=== PATIENT | male | born 1975 | race Asian ===

== ENCOUNTER 2018-08-14 08:09 | Inpatient (IN) | payer OTHER ==
[2018-08-14 08:41] LABS: BASO % 1.1 % (0-2.0); EOS % 4.8 % (0-4.5); LYMPH % 28.1 % (8-40); MCH 31.9 pg (25.7-33.7); MCHC 32.8 g/dl (32.0-35.9); MEAN CELL VOLUME 97.3 fl (80-96); MEAN PLT VOLUME 8.7 fl (7.5-11.1); MONO % 6.1 % (3.8-10.2); NEUT % 59.9 % (42.8-82.8); PLATELET COUNT 352 K/MM3 (134-434); RBC 5.96 M/mm3 (4.00-5.60); RDW 12.2 % (11.9-15.9); WHITE BLOOD COUNT 9.8 K/mm3 (4.0-10.8)
[2018-08-14] MEDS ORDERED: FAMOTIDINE 20 MG/50 ML IVPB 20 MG/50 ML MG IVPB ONE ×2 (08:48→08:54)
[2018-08-14] MEDS ORDERED: SODIUM CHLORIDE 1,000 ML IV ONE ×2 (08:48→09:50)
[2018-08-14] MEDS ORDERED: LORazepam 2 MG/ML SDV VIAL ONE ×2 (08:54→10:47)
[2018-08-14 08:56] LABS: MAGNESIUM 1.9 mg/dL (1.8-2.4)
[2018-08-14 08:57] LABS: ALBUMIN 3.8 g/dl (3.4-5.0); ALK PHOS 95 U/L (45-117); ANION GAP 18 MMOL/L (8-16); BILIRUBIN,TOTAL 1.7 mg/dl (0.2-1); BLOOD UREA NITROGEN 8 mg/dl (7-18); CALCIUM 9.4 mg/dl (8.5-10); CHLORIDE 98 mmol/L (98-107); CO2 21 mmol/L (21-32); CREATININE 1.1 mg/dl (0.55-1.3); GLUCOSE,RANDOM 217 mg/dl (74-106); POTASSIUM 4.2 mmol/L (3.5-5.1); SGOT/AST 32 U/L (15-37); SGPT/ALT 25 U/L (13-61); SODIUM 137 mmol/L (136-145); TOT PROT 7.2 g/dl (6.4-8.2)
--- NOTE | 2018-08-14 09:00 | PDOC ---
History of Present Illness - General Chief Complaint: Pain, Acute Stated Complaint: ABDOMINAL PAIN/PALPITATIONS Time Seen by Provider: 08/14/18 08:15 History Source: Patient Exam Limitations: No Limitations - History of Present Illness Initial Comments: 08/14/18 08:55 43-year-old male with history of hypertension presents with abdominal cramping/ vomiting/diarrhea for 1 day. Patient was in his usual state of normal health, which includes moderate alcohol intake of 4-5 drinks per day for 4-5 days per week. He did have alcohol binge over the weekend celebrating his birthday, drinking "a lot" Monday, Monday, and Monday. He awoke yesterday with mild abdominal discomfort and had an episode of nonbloody vomiting. Decreased appetite without food but adequately hydrating with water, presents today for evaluation of persistent mild cramping in the epigastric and left-sided abdominal region and feeling palpitations. Compliant with his Norvasc including this morning, denies any headache/vision change/speech change/chest pain/ shortness of breath/dyspnea on exertion/edema/focal weakness. Does not feel anxious or jittery, does not report symptoms of withdrawal in the past. No history of gallstones or pancreatitis or gastritis, never needed PPI or endoscopy. Past History - Past Medical History Allergies/Adverse Reactions: Allergies Allergy/AdvReac Type Severity Reaction Status Date / Time Penicillins Allergy Verified 08/14/18 08:10 Home Medications: Ambulatory Orders Amlodipine Besylate [Norvasc -] 10 mg PO DAILY #1 tablet 05/02/17 COPD: No HTN: Yes Other medical history: ANXIETY - Suicide/Smoking/Psychosocial Hx Smoking History: Never smoked Have you smoked in the past 12 months: No Information on smoking cessation initiated: No Hx Alcohol Use: Yes (4 TIMES A WEEK) Drug/Substance Use Hx: Yes ([employer]) Substance Use Type: Alcohol Hx Substance Use Treatment: No Review of Systems - Review of Systems Constitutional: No: Chills, Fever HEENTM: No: Recent change in vision, Nose Congestion Respiratory: No: Cough, Shortness of Breath, SOB with Exertion Cardiac (ROS): Yes: Palpitations. No: Chest Pain, Edema, Syncope ABD/GI: Yes: Diarrhea, Nausea, Vomiting Neurological: No: Headache, Weakness Psychiatric: No: Anxiety, Depression All Other Systems: Reviewed and Negative *Physical Exam - Vital Signs Last Vital Signs Temp Pulse Resp BP Pulse Ox 97.3 F L 130 H 20 174/137 H 97 08/14/18 08:23 08/14/18 08:23 08/14/18 08:23 08/14/18 08:23 08/14/18 08:23 - Physical Exam Comments: 08/14/18 09:08 Blood pressure elevated, heart rate 115, O2 sat normal, afebrile GENERAL: The patient is awake, alert, and fully oriented, in no acute distress. HEAD: Normal with no signs of trauma. EYES: PERRL, EOMI, sclera anicteric, conjunctiva clear with no pallor. ENT: oropharynx clear without exudates. Dry mucous membranes. No tongue fasciculations. NECK: Normal range of motion, supple. LUNGS: Breath sounds equal, clear to auscultation bilaterally. No wheeze/ crackles. HEART: regular tachycardia, normal S1 and S2 without murmur or rub. ABDOMEN: Soft/nontender/nondistended. BS wnl. No guarding or rebound. No palpable masses. No hepatosplenomegaly. No cvat. EXTREMITIES: Normal range of motion, no edema. 2+ distal pulses. No cords, erythema, or tenderness. NEUROLOGICAL: Cranial nerves II through XII grossly intact. Normal speech, normal gait. PSYCH: Normal mood, normal affect. Feels palpitations but not overly anxious. no si/hi/ah/vh. SKIN: Warm, Dry, no rashes or lesions noted. Moderate Sedation - Procedure Monitoring Vital Signs: Procedure Monitoring Vital Signs Temperature 97.3 F L 08/14/18 08:23 Pulse Rate 130 H 08/14/18 08:23 Respiratory Rate 20 08/14/18 08:23 Blood Pressure 174/137 H 08/14/18 08:23 O2 Sat by Pulse Oximetry (%) 97 08/14/18 08:23 Heart Score/ECG Review #1 General ECG Interpretation: Sinus Rhythm (tachy at 119), Normal Intervals (qtc 452), No acute ischemic changes ED Treatment Course - LABORATORY CBC & Chemistry Diagram: 08/14/18 08:20 08/14/18 08:20 - ADDITIONAL ORDERS Additional order review: 08/14/18 08:20 RBC 5.96 H MCV 97.3 H MCHC 32.8 RDW 12.2 MPV 8.7 Neutrophils % 59.9 Lymphocytes % 28.1 D Monocytes % 6.1 Eosinophils % 4.8 H Basophils % 1.1 Medical Decision Making - Critical Care Time Total Critical Care Time (minutes): 45 Critical Care Statement: The care of this patient involved high complexity decision making to prevent further life threatening deterioration of the patient 's condition and/or to evaluate & treat vital organ system(s) failure or risk of failure. - Medical Decision Making 08/14/18 09:23 43-year-old male with history of hypertension presents with abdominal cramping/ vomiting/diarrhea for 1 day in the setting of recent alcohol binge, baseline mild to moderate alcohol intake. Presentation could be consistent with alcoholic gastritis, pancreatitis, gastroenteritis. Also concerning for early withdrawal given the hypertension and tachycardia. labs, ekg ivf antacid, trial of ativan reassess 08/14/18 09:55 wbc normal, slightly hemoconcentrated. nomal ast/alt/alkphos. lipase pending. received ivf and ativan, slight improvement in heart rate (105). will give additional iv fluids and continue to monitor. 08/14/18 10:43 Lipase wnl at 193. Remains tachy after 2nd liter of NS, though otherwise asymptomatic. Will give second dose of ativan and add librium and reassess. 08/14/18 11:20 received ativan 4mg, clinically comfortable and fell asleep but persistent elevated BP (155/117) and heart rate (120). Pt otherwise asx. BP control: consider additional dose of home norvasc versus clonidine given etoh intake. Will add TSH, no risk factors or clinical suspicion for PE. Check utox for possible secondary tox syndrome but does not appear clinically sympathomimetic. will admit to tele for continued monitoring. 08/14/18 11:35 Accepted for inpatient tele by Dr. Colin, signout given to MARIS Queen. Discussed and will trial clonidine 0.1mg. She will consult addiction medicine and we will place patient on tele. *DC/Admit/Observation/Transfer Diagnosis at time of Disposition: Abdominal cramping, Palpitations Alcohol withdrawal Qualifiers: Complication of substance-induced condition: uncomplicated Qualified Code(s): F10.230 - Alcohol dependence with withdrawal, uncomplicated - Discharge Dispostion Condition at time of disposition: Stable Decision to Admit order: Yes - Referrals - Patient Instructions - Post Discharge Activity
[2018-08-14 10:36] LABS: LIPASE 193 U/L (73-393)
[2018-08-14] MEDS ORDERED: chlordiazePOXIDE HCL 25 MG CAPSULE PO ONE (10:44)
[2018-08-14] MEDS ORDERED: chlordiazePOXIDE HCL 25 MG CAPSULE ONE (10:45)
[2018-08-14] MEDS ORDERED: cloNIDine HCL 0.1 MG TABLET PO ONE (11:37)
[2018-08-14] MEDS ORDERED: cloNIDine HCL 0.1 MG TABLET ONE (11:39)
[2018-08-14 11:54] LABS: PH,URINE 5.5 (4.5-8); URINE APPEARANCE CLEAR; URINE BILIRUBIN NEGATIVE (NEGATIVE); URINE COLOR AMBER; URINE GLUCOSE (UA) NEGATIVE (NEGATIVE); URINE KETONE NEGATIVE (NEGATIVE); URINE LEUK ESTERASE NEGATIVE (NEGATIVE); URINE NITRITE NEGATIVE (NEGATIVE); URINE PROTEIN NEGATIVE (NEGATIVE); URINE UROBILINOGEN 0.2 (0.2-1.0)
[2018-08-14 12:28] LABS: ANION GAP 13 MMOL/L (8-16); BLOOD UREA NITROGEN 7 mg/dl (7-18); CALCIUM 8.5 mg/dl (8.5-10); CHLORIDE 102 mmol/L (98-107); CO2 20 mmol/L (21-32); CREATININE 0.9 mg/dl (0.55-1.3); GLUCOSE,RANDOM 122 mg/dl (74-106); SODIUM 135 mmol/L (136-145)
--- NOTE | 2018-08-14 12:34 | HP ---
CHIEF COMPLAINT: Abdominal cramping, vomiting, diarrhea PCP: None HISTORY OF PRESENT ILLNESS: 43 year-old male witha PMH significant for HTN, presents with abdominal cramping /vomiting/diarrhea for 1 day. Patient was in his usual state of normal health, which includes alcohol intake of 4-5 drinks per day, 4-5 days per week. He did have alcohol binge over the weekend celebrating his birthday, drinking "a lot" Monday, Monday, and Monday. His last drink was on Monday night, 08/12. Last meal at the same time. Patient awoke yesterday with mild abdominal discomfort and had an episode of nonbloody vomiting. Decreased appetite without food but adequately hydrating with water, presents today for evaluation of persistent mild cramping in the epigastric and left-sided abdominal region and feeling palpitations. Compliant with his Norvasc including this morning, denies any headache/vision change/speech change/chest pain/shortness of breath/dyspnea on exertion/edema/focal weakness. Admits to this provider he went through alcohol withdrawal about six months ago when he got the shakes. He was not in a hospital or rehab setting. No history of gallstones or pancreatitis or gastritis , never needed PPI or endoscopy. ER course was notable for: (1) 166/119, p 121 (2) Total bili 1.7 (3) Lactic acid 2.6 (4) Librium 50mg x 1; ativan IVP total 6mg; clonidine 0.1mg x 1; pepcid IVPB 20mg x 1; NS x 2L Recent Travel: No PAST MEDICAL HISTORY: Hypertension PAST SURGICAL HISTORY: None reported Social History: works as cardiovascular heating and cooling technician Smoking: Alcohol: see above Drugs: Family History: Allergies Penicillins Allergy (Verified 08/14/18 08:10) HOME MEDICATIONS: Home Medications Medication Instructions Recorded Amlodipine Besylate [Norvasc -] 10 mg PO DAILY #1 tablet 05/02/17 REVIEW OF SYSTEMS CONSTITUTIONAL: Absent: fever, chills, diaphoresis, generalized weakness, malaise, loss of appetite, weight change HEENT: Absent: rhinorrhea, nasal congestion, throat pain, throat swelling, difficulty swallowing, mouth swelling, ear pain, eye pain, visual changes CARDIOVASCULAR: Absent: chest pain, syncope, palpitations, irregular heart rate, lightheadedness , peripheral edema RESPIRATORY: Absent: cough, shortness of breath, dyspnea with exertion, orthopnea, wheezing, stridor, hemoptysis GASTROINTESTINAL: +abdominal cramping, nausea, vomiting, diarrhea Absent: constipation, melena, hematochezia GENITOURINARY: Absent: dysuria, frequency, urgency, hesitancy, hematuria, flank pain, genital pain MUSCULOSKELETAL: Absent: myalgia, arthralgia, joint swelling, back pain, neck pain SKIN: Absent: rash, itching, pallor HEMATOLOGIC/IMMUNOLOGIC: Absent: easy bleeding, easy bruising, lymphadenopathy, frequent infections ENDOCRINE: Absent: unexplained weight gain, unexplained weight loss, heat intolerance, cold intolerance NEUROLOGIC: Absent: headache, focal weakness or paresthesias, dizziness, unsteady gait, seizure, mental status changes, bladder or bowel incontinence PSYCHIATRIC: Absent: anxiety, depression, suicidal or homicidal ideation, hallucinations. PHYSICAL EXAMINATION Vital Signs - 24 hr 08/14/18 08/14/18 08/14/18 08:23 09:11 10:47 Temperature 97.3 F L Pulse Rate 130 H Pulse Rate [ 117 H 124 H Left Apical] Respiratory 20 18 18 Rate Blood Pressure 174/137 H Blood Pressure 166/119 H 157/120 H [Right Arm] O2 Sat by Pulse 97 99 98 Oximetry (%) GENERAL: Awake, alert, and fully oriented. Anxious appearing. No tremors, no asterixis, no diaphoresis. HEAD: Normal with no signs of trauma. EYES: Pupils equal, round and reactive to light, extraocular movements intact, injected sclera appearance EARS, NOSE, THROAT: Ears normal, nares patent, oropharynx clear without exudates. Dry mucous membranes. NECK: Normal range of motion, supple without lymphadenopathy, JVD, or masses. LUNGS: Breath sounds equal, clear to auscultation bilaterally. No wheezes, and no crackles. No accessory muscle use. HEART: Rapid, regular rate and rhythm, S1 and S2 ABDOMEN: Soft, nontender, not distended, MUSCULOSKELETAL: Normal range of motion at all joints. No bony deformities or tenderness. No CVA tenderness. UPPER EXTREMITIES: 2+ pulses, warm, well-perfused. No cyanosis. No clubbing. No peripheral edema. LOWER EXTREMITIES: 2+ pulses, warm, well-perfused. No calf tenderness. No peripheral edema. NEUROLOGICAL: Cranial nerves II-XII intact. Normal speech. Laboratory Results - last 24 hr 08/14/18 08/14/18 08/14/18 08:20 08:20 08:20 WBC 9.8 RBC 5.96 H Hgb 19.0 H Hct 58.0 H D MCV 97.3 H MCH 31.9 MCHC 32.8 RDW 12.2 Plt Count 352 D MPV 8.7 Absolute Neuts (auto) 5.8 Neutrophils % 59.9 Lymphocytes % 28.1 D Monocytes % 6.1 Eosinophils % 4.8 H Basophils % 1.1 Sodium 137 Potassium 4.2 Chloride 98 Carbon Dioxide 21 Anion Gap 18 H BUN 8 Creatinine 1.1 Creat Clearance w eGFR > 60 Random Glucose 217 H Calcium 9.4 Magnesium Total Bilirubin 1.7 H AST 32 ALT 25 Alkaline Phosphatase 95 Creatine Kinase Creatine Kinase Index CK-MB (CK-2) Troponin I < 0.03 Total Protein 7.2 Albumin 3.8 Lipase 193 Urine Color Urine Appearance Urine pH Ur Specific Reagan Urine Protein Urine Glucose (UA) Urine Ketones Urine Blood Urine Nitrite Urine Bilirubin Urine Urobilinogen Ur Leukocyte Esterase Alcohol, Quantitative 08/14/18 08/14/18 08/14/18 08:20 11:38 12:06 WBC RBC Hgb Hct MCV MCH MCHC RDW Plt Count MPV Absolute Neuts (auto) Neutrophils % Lymphocytes % Monocytes % Eosinophils % Basophils % Sodium 135 L Potassium 4.0 Chloride 102 Carbon Dioxide 20 L Anion Gap 13 BUN 7 Creatinine 0.9 Creat Clearance w eGFR > 60 Random Glucose 122 H Calcium 8.5 Magnesium 1.9 Total Bilirubin AST ALT Alkaline Phosphatase Creatine Kinase 325 H Creatine Kinase Index 0.6 CK-MB (CK-2) 2.2 Troponin I Total Protein Albumin Lipase Urine Color Annabel Urine Appearance Clear Urine pH 5.5 D Ur Specific Reagan 1.020 Urine Protein Negative Urine Glucose (UA) Negative Urine Ketones Negative Urine Blood Negative Urine Nitrite Negative Urine Bilirubin Negative Urine Urobilinogen 0.2 Ur Leukocyte Esterase Negative Alcohol, Quantitative 5.5 H ECG: sinus tach @ 119bpm ASSESSMENT/PLAN 43 year-old male with a PMH significant for HTN admitted for hypertensive urgency likely secondary to acute alcohol withdrawal. Acute alcohol withdrawal Lactic acidosis --last drink 08/12 at 10:00pm --serum alcohol 5, utox pending --lactic acid 2.6, repeat in 4 hours --first dose librium PO 50mg given in ED, start librium protocol --ativan PRN for seizure --Dr. Dumont consult placed Elevated bilirubin --total bili 1.7, has been elevated in past --05/01/17 liver: fatty infiltration --get repeat US --continue to trend LFTs Elevated hemoglobin --likely secondary to low volume state Hypertensive urgency --BP 149/118 on admission to floor after clonidine and ativan 6mg in ED --hydralazine IVP 20mg and PO 25mg now; repeat in 2 hours --may need to be transferred to [facility] for drip --TSH pending FEN Fluids: 2L NS given in ED; 3rd L running now, then 125mL/hr Electrolytes: replete as indicated Nutrition: NPO DVT prophylaxis: SCDs Dispo: continues to require inpatient care. Full code. Visit type - Emergency Visit Emergency Visit: Yes ED Registration Date: 08/14/18 Care time: The patient presented to the Emergency Department on the above date and was hospitalized for further evaluation of their emergent condition. - New Patient This patient is new to me today: Yes Date on this admission: 08/14/18 - Critical Care Critical Care patient: No
[2018-08-14 13:05] VITALS: BMI 26.3
[2018-08-14] MEDS ORDERED: hydrALAZINE HCL 20 MG/ML VIAL IVPUSH ONE (13:15)
[2018-08-14] MEDS ORDERED: chlordiazePOXIDE HCL 25 MG CAPSULE PO PRN (13:24)
[2018-08-14] MEDS ORDERED: hydrALAZINE HCL 25 MG TABLET (FP) PO ONE ×2 (13:30→13:45)
[2018-08-14 13:31] LABS: COCAINE, UR NEGATIVE ng/ml (CUTOFF=300); METHADONE, UR NEGATIVE ng/ml (CUTOFF=300); OPIATES, URI NEGATIVE ng/ml (CUTOFF=300); PHENCYCLIDINE,URINE NEGATIVE ng/ml (CUTOFF=25); URINE AMPHETAMINES NEGATIVE ng/ml (CUTOFF=500); URINE BARBITURATES NEGATIVE ng/ml (CUTOFF=200); URINE BENZODIAZEPINES NEGATIVE ng/ml (CUTOFF=200)
[2018-08-14] MEDS ORDERED: SODIUM CHLORIDE 1,000 ML IV STA (13:56)
[2018-08-14] MEDS ORDERED: LORazepam 2 MG/ML SDV VIAL IVPUSH PRN (14:04)
[2018-08-14] MEDS ORDERED: SODIUM CHLORIDE 1,000 ML IV SCH (15:00)
[2018-08-14] MEDS ORDERED: amLODIPine BESYLATE 10 MG TABLET (FP) PO ONE (15:20)
--- NOTE | 2018-08-14 15:53 | PN ---
[facility] Progress Note (SOAP) Subjective: 43 y.o. male referred for consultation for alcohol use , reports 4-5 drinks/ day x 5 years and binge-drinking over the last weekend for his birthday , reports he drank " a lot " with his friends and then started having nausea, vomiting, diarrhea and palpitation, presented to ED , currently on telemetry monitoring and IVF , on Librium taper . Patient reports above history and denies prior withdrawal seizures, blackouts, or tremors , denies falls while intoxicated. Denies driving after drinking, no DUI/DWI . Employed . Denies illicits or tobacco use . PMHX : HTN Active Medications Amlodipine Besylate (Norvasc -) 10 mg PO DAILY TREVOR Chlordiazepoxide HCl (Librium -) 50 mg PO [id number] TREVOR Stop: 08/15/18 11:01 Chlordiazepoxide HCl (Librium -) 25 mg PO [id number] TREVOR Stop: 08/16/18 11:01 Chlordiazepoxide HCl (Librium -) 15 mg PO [id number] TREVOR Stop: 08/17/18 11:01 Chlordiazepoxide HCl (Librium -) 25 mg PO Q4H PRN PRN Reason: WITHDRAWAL(CONT SUBST) Stop: 08/17/18 13:23 Chlordiazepoxide HCl (Librium -) 10 mg PO [id number] TREVOR Stop: 08/18/18 11:01 Hydralazine HCl (Apresoline -) 10 mg PO TID TREVOR Sodium Chloride (Normal Saline -) 1,000 mls @ 125 mls/hr IV ASDIR TREVOR Last Admin: 08/14/18 14:29 Dose: 125 mls/hr Lorazepam (Ativan Injection -) 2 mg IVPUSH ONCE PRN PRN Reason: AGITATION Stop: 08/15/18 14:03 Pantoprazole Sodium (Protonix -) 40 mg PO BID [facility] Objective: wnwd , NAD , resting in bed comfrtably HEENT: NCAT EOMI Neuro: AAO x 3 , no tremors , strength 5/5 . CBC, BMP 08/14/18 08:20 08/14/18 12:06 Vital Signs - 24 hr 08/14/18 08/14/18 08/14/18 08:23 09:11 10:47 Temperature 97.3 F L Pulse Rate 130 H Pulse Rate [ 117 H 124 H Left Apical] Respiratory 20 18 18 Rate Blood Pressure 174/137 H Blood Pressure 166/119 H 157/120 H [Right Arm] O2 Sat by Pulse 97 99 98 Oximetry (%) 08/14/18 08/14/18 08/14/18 11:17 12:26 12:43 Temperature 98.8 F Pulse Rate Pulse Rate [ 125 H 121 H Left Apical] Respiratory 16 16 16 Rate Blood Pressure Blood Pressure 155/117 H 152/112 H [Right Arm] O2 Sat by Pulse 96 99 98 Oximetry (%) 08/14/18 08/14/18 08/14/18 12:52 13:43 13:47 Temperature 98.1 F Pulse Rate 136 H 114 H 115 H Pulse Rate [ Left Apical] Respiratory 18 18 Rate Blood Pressure 149/118 H 168/122 H 166/116 H Blood Pressure [Right Arm] O2 Sat by Pulse Oximetry (%) 08/14/18 08/14/18 08/14/18 13:51 13:55 14:02 Temperature Pulse Rate 122 H 122 H 122 H Pulse Rate [ Left Apical] Respiratory 16 Rate Blood Pressure 154/98 151/103 H 151/104 H Blood Pressure [Right Arm] O2 Sat by Pulse 98 Oximetry (%) 08/14/18 08/14/18 08/14/18 14:06 14:10 14:14 Temperature Pulse Rate 122 H 123 H 125 H Pulse Rate [ Left Apical] Respiratory 18 18 Rate Blood Pressure 151/98 149/99 145/86 Blood Pressure [Right Arm] O2 Sat by Pulse Oximetry (%) 08/14/18 08/14/18 08/14/18 14:30 14:39 14:50 Temperature Pulse Rate 123 H 126 H 124 H Pulse Rate [ Left Apical] Respiratory 18 16 16 Rate Blood Pressure 152/92 152/89 144/97 Blood Pressure [Right Arm] O2 Sat by Pulse Oximetry (%) Assessment: Alcohol dependence with withdrawal. Plan: continue chlordiazepoxide taper . discussed w/ pt at length , may benefit from outpatient aftercare referral , AA , verbalizes understanding and agreement w/ POC.
[2018-08-14] MEDS ORDERED: METOPROLOL TARTRATE 25 MG TABLET (FP) PO ONE ×2 (16:15→18:00)
[2018-08-14] MEDS: chlordiazePOXIDE HCL 25 MG CAPSULE PO SCH ×2 (16:56→22:20)
--- NOTE | 2018-08-14 19:41 | EKG ---
Test Reason : Blood Pressure : / mmHG Vent. Rate : 119 BPM Atrial Rate : 119 BPM P-R Int : 142 ms QRS Dur : 082 ms QT Int : 322 ms P-R-T Axes : 045 -21 023 degrees QTc Int : 452 ms SINUS TACHYCARDIA OTHERWISE NORMAL ECG WHEN COMPARED WITH ECG OF 02-MAY-2017 06:48, VENT. RATE HAS INCREASED BY 40 BPM Confirmed by MD EVERETT, PAXTON ([id number]) on 08/14/2018 7:41:19 PM Referred By: ARABELLA HERNANDEZ Confirmed By:PAXTON FLOYD MD
[2018-08-14] MEDS: PANTOPRAZOLE 40 MG TABLET (FP) PO SCH (21:22)
[2018-08-14] MEDS: METOPROLOL TARTRATE 25 MG TABLET (FP) PO SCH (21:22)
[2018-08-14] MEDS: hydrALAZINE HCL 10 MG TABLET PO SCH (21:22)
[2018-08-15] MEDS: hydrALAZINE HCL 10 MG TABLET PO SCH ×4 (05:02→22:19)
[2018-08-15] MEDS: chlordiazePOXIDE HCL 25 MG CAPSULE PO SCH ×4 (05:02→22:29)
[2018-08-15 07:52] LABS: BASO % 0.8 % (0-2.0); HEMOGLOBIN 16.9 GM/dl (11.7-16.9); RDW 11.9 % (11.9-15.9)
[2018-08-15 08:08] LABS: ALBUMIN 2.9 g/dl (3.4-5.0); ALK PHOS 79 U/L (45-117); ANION GAP 9 MMOL/L (8-16); BILIRUBIN,TOTAL 2.7 mg/dl (0.2-1); BLOOD UREA NITROGEN 7 mg/dl (7-18); CALCIUM 8.5 mg/dl (8.5-10); CHLORIDE 103 mmol/L (98-107); CO2 25 mmol/L (21-32); CREATININE 0.9 mg/dl (0.55-1.3); EOS % 13.3 % (0-4.5); GLUCOSE,RANDOM 126 mg/dl (74-106); HEMATOCRIT 49.7 % (35.4-49); LYMPH % 19.1 % (8-40); MAGNESIUM 1.7 mg/dL (1.8-2.4); MCH 32.5 pg (25.7-33.7); MCHC 34.1 g/dl (32.0-35.9); MEAN CELL VOLUME 95.2 fl (80-96); MEAN PLT VOLUME 9.1 fl (7.5-11.1); MONO % 6.5 % (3.8-10.2); NEUT % 60.3 % (42.8-82.8); PLATELET COUNT 258 K/MM3 (134-434); POTASSIUM 3.7 mmol/L (3.5-5.1); RBC 5.22 M/mm3 (4.00-5.60); SGOT/AST 22 U/L (15-37); SGPT/ALT 18 U/L (13-61); SODIUM 137 mmol/L (136-145); TOT PROT 5.6 g/dl (6.4-8.2); WHITE BLOOD COUNT 9.5 K/mm3 (4.0-10.8)
[2018-08-15] MEDS ORDERED: SODIUM CHLORIDE 1,000 ML IV SCH (08:19)
[2018-08-15] MEDS ORDERED: MAGNESIUM SULF 50% (8.12 MEQ/2 ML-1 GM VIAL) IVPB ONE (08:38)
--- NOTE | 2018-08-15 08:39 | PN ---
Physical Exam: SUBJECTIVE: Patient seen and examined oob to chair, eating lunch. Feels better. Appears sad. OBJECTIVE: Vital Signs Period Temp Pulse Resp BP Sys/Elliott Pulse Ox Last 24 Hr 97.5 F-99.0 F 80-136 16-18 127-168/86-122 87-100 GENERAL: The patient is awake, alert, and fully oriented, in no acute distress. LUNGS: Breath sounds equal, clear to auscultation bilaterally, no wheezes, no crackles, no accessory muscle use. HEART: Regular rate and rhythm, S1, S2 \ ABDOMEN: Soft, nontender, nondistended, normoactive bowel sounds EXTREMITIES: 2+ pulses, warm, well-perfused, no edema. NEUROLOGICAL: Cranial nerves II through XII grossly intact. Normal speech, steady gait observed. No tremors, no asterixis, no tongue fasciculations. SKIN: Warm, dry, normal turgor, no rashes or lesions noted Laboratory Results - last 24 hr 08/14/18 08/14/18 08/14/18 08:20 08:20 08:20 WBC 9.8 RBC 5.96 H Hgb 19.0 H Hct 58.0 H D MCV 97.3 H MCH 31.9 MCHC 32.8 RDW 12.2 Plt Count 352 D MPV 8.7 Absolute Neuts (auto) 5.8 Neutrophils % 59.9 Lymphocytes % 28.1 D Monocytes % 6.1 Eosinophils % 4.8 H Basophils % 1.1 Sodium 137 Potassium 4.2 Chloride 98 Carbon Dioxide 21 Anion Gap 18 H BUN 8 Creatinine 1.1 Creat Clearance w eGFR > 60 Random Glucose 217 H Lactic Acid Calcium 9.4 Magnesium Total Bilirubin 1.7 H AST 32 ALT 25 Alkaline Phosphatase 95 Creatine Kinase Creatine Kinase Index CK-MB (CK-2) Troponin I < 0.03 Total Protein 7.2 Albumin 3.8 Lipase 193 TSH Urine Color Urine Appearance Urine pH Ur Specific [place] Urine Protein Urine Glucose (UA) Urine Ketones Urine Blood Urine Nitrite Urine Bilirubin Urine Urobilinogen Ur Leukocyte Esterase Opiates Screen Methadone Screen Barbiturate Screen Phencyclidine Screen Ur Amphetamines Screen MDMA (Ecstasy) Screen Benzodiazepines Screen Cocaine Screen U Marijuana (THC) Screen Alcohol, Quantitative 08/14/18 08/14/18 08/14/18 08:20 11:38 11:38 WBC RBC Hgb Hct MCV MCH MCHC RDW Plt Count MPV Absolute Neuts (auto) Neutrophils % Lymphocytes % Monocytes % Eosinophils % Basophils % Sodium Potassium Chloride Carbon Dioxide Anion Gap BUN Creatinine Creat Clearance w eGFR Random Glucose Lactic Acid Calcium Magnesium 1.9 Total Bilirubin AST ALT Alkaline Phosphatase Creatine Kinase 325 H Creatine Kinase Index 0.6 CK-MB (CK-2) 2.2 Troponin I Total Protein Albumin Lipase TSH 0.62 Urine Color Annabel Urine Appearance Clear Urine pH 5.5 D Ur Specific [place] 1.020 Urine Protein Negative Urine Glucose (UA) Negative Urine Ketones Negative Urine Blood Negative Urine Nitrite Negative Urine Bilirubin Negative Urine Urobilinogen 0.2 Ur Leukocyte Esterase Negative Opiates Screen Methadone Screen Barbiturate Screen Phencyclidine Screen Ur Amphetamines Screen MDMA (Ecstasy) Screen Benzodiazepines Screen Cocaine Screen U Marijuana (THC) Screen Alcohol, Quantitative 08/14/18 08/14/18 08/14/18 11:38 12:06 12:06 WBC RBC Hgb Hct MCV MCH MCHC RDW Plt Count MPV Absolute Neuts (auto) Neutrophils % Lymphocytes % Monocytes % Eosinophils % Basophils % Sodium 135 L Potassium 4.0 Chloride 102 Carbon Dioxide 20 L Anion Gap 13 BUN 7 Creatinine 0.9 Creat Clearance w eGFR > 60 Random Glucose 122 H Lactic Acid 2.6 H* Calcium 8.5 Magnesium Total Bilirubin AST ALT Alkaline Phosphatase Creatine Kinase Creatine Kinase Index CK-MB (CK-2) Troponin I Total Protein Albumin Lipase TSH Urine Color Urine Appearance Urine pH Ur Specific [place] Urine Protein Urine Glucose (UA) Urine Ketones Urine Blood Urine Nitrite Urine Bilirubin Urine Urobilinogen Ur Leukocyte Esterase Opiates Screen Negative Methadone Screen Negative Barbiturate Screen Negative Phencyclidine Screen Negative Ur Amphetamines Screen Negative MDMA (Ecstasy) Screen Negative Benzodiazepines Screen Negative Cocaine Screen Negative U Marijuana (THC) Screen Negative Alcohol, Quantitative 5.5 H 08/14/18 08/15/18 08/15/18 15:59 07:15 07:15 WBC 9.5 RBC 5.22 Hgb 16.9 Hct 49.7 H MCV 95.2 MCH 32.5 MCHC 34.1 RDW 11.9 Plt Count 258 D MPV 9.1 Absolute Neuts (auto) 5.7 Neutrophils % 60.3 Lymphocytes % 19.1 D Monocytes % 6.5 Eosinophils % 13.3 H D Basophils % 0.8 Sodium 137 Potassium 3.7 Chloride 103 Carbon Dioxide 25 Anion Gap 9 BUN 7 Creatinine 0.9 Creat Clearance w eGFR > 60 Random Glucose 126 H Lactic Acid 1.7 Calcium 8.5 Magnesium 1.7 L Total Bilirubin 2.7 H AST 22 ALT 18 Alkaline Phosphatase 79 D Creatine Kinase Creatine Kinase Index CK-MB (CK-2) Troponin I Total Protein 5.6 L Albumin 2.9 L Lipase TSH Urine Color Urine Appearance Urine pH Ur Specific [place] Urine Protein Urine Glucose (UA) Urine Ketones Urine Blood Urine Nitrite Urine Bilirubin Urine Urobilinogen Ur Leukocyte Esterase Opiates Screen Methadone Screen Barbiturate Screen Phencyclidine Screen Ur Amphetamines Screen MDMA (Ecstasy) Screen Benzodiazepines Screen Cocaine Screen U Marijuana (THC) Screen Alcohol, Quantitative Active Medications Generic Name Dose Route Start Last Admin Trade Name Freq PRN Reason Stop Dose Admin Chlordiazepoxide HCl 50 mg 08/14/18 17:00 08/15/18 05:02 Librium - PO 08/15/18 11:01 50 mg [id number] TREVOR Administration Chlordiazepoxide HCl 25 mg 08/15/18 17:00 Librium - PO 08/16/18 11:01 [id number] TREVOR Chlordiazepoxide HCl 15 mg 08/16/18 17:00 Librium - PO 08/17/18 11:01 [id number] TREVOR Chlordiazepoxide HCl 25 mg 08/14/18 13:24 Librium - PO 08/17/18 13:23 Q4H PRN WITHDRAWAL(CONT SUBST) Chlordiazepoxide HCl 10 mg 08/17/18 17:00 Librium - PO 08/18/18 11:01 [id number] TREVOR Hydralazine HCl 10 mg 08/14/18 22:00 08/15/18 05:02 Apresoline - PO 10 mg TID TREVOR Administration Sodium Chloride 1,000 mls @ 75 mls/hr 08/15/18 08:19 Normal Saline - IV ASDIR TREVOR Lorazepam 2 mg 08/14/18 14:04 Ativan Injection - IVPUSH 08/15/18 14:03 ONCE PRN AGITATION Magnesium Sulfate 2 gm 08/15/18 08:38 Magnesium Sulfate IVPB 08/15/18 08:39 ONCE ONE Metoprolol Tartrate 25 mg 08/14/18 22:00 08/14/18 21:22 Lopressor - PO 25 mg BID TREVOR Administration Pantoprazole Sodium 40 mg 08/14/18 22:00 08/14/18 21:22 Protonix - PO 40 mg BID TREVOR Administration ASSESSMENT/PLAN: 43 year-old male with a PMH significant for HTN admitted for hypertensive urgency likely secondary to acute alcohol withdrawal. Acute alcohol withdrawal Lactic acidosis, resolved --last drink 08/12 at 10:00pm --serum alcohol 5, utox negative --lactic acid 2.6 --1.7 --continue librium protocol --ativan PRN for seizure Elevated bilirubin --total bili trending up 2.7 --US: diffuse fatty liver --continue to trend LFTs Elevated hemoglobin, resolved --likely secondary to low volume state Hypertension Tachycardia --tachycardia improved with metoprolol, increase to 25mg BID --hypertension persists, increase hydralazine 20mg QID --TSH wnl FEN Fluids: PO intake adequate Electrolytes: replete as indicated Nutrition: low sodium DVT prophylaxis: SCDs Dispo: continues to require inpatient care. Full code. Visit type - Emergency Visit Emergency Visit: Yes ED Registration Date: 08/14/18 Care time: The patient presented to the Emergency Department on the above date and was hospitalized for further evaluation of their emergent condition. - New Patient This patient is new to me today: No - Critical Care Critical Care patient: No
[2018-08-15] MEDS: METOPROLOL TARTRATE 25 MG TABLET (FP) PO SCH ×2 (09:08→22:19)
[2018-08-15] MEDS: PANTOPRAZOLE 40 MG TABLET (FP) PO SCH (09:08)
[2018-08-15] MEDS: THIAMINE HCL 100 MG TABLET (FP) PO SCH (09:59)
[2018-08-15] MEDS: FOLIC ACID 1 MG TABLET (FP) PO SCH (09:59)
[2018-08-15] MEDS ORDERED: amLODIPine BESYLATE 10 MG TABLET (FP) PO SCH (10:00)
[2018-08-15] MEDS: hydrALAZINE HCL 20 MG/ML VIAL IVPUSH ONE ×2 (13:27→13:56)
[2018-08-15] MEDS ORDERED: hydrALAZINE HCL 10 MG TABLET PO SCH (14:00)
--- NOTE | 2018-08-16 02:32 | EKG ---
Test Reason : Blood Pressure : / mmHG Vent. Rate : 087 BPM Atrial Rate : 087 BPM P-R Int : 150 ms QRS Dur : 088 ms QT Int : 388 ms P-R-T Axes : 012 -16 -01 degrees QTc Int : 466 ms NORMAL SINUS RHYTHM POSSIBLE ANTERIOR INFARCT , AGE UNDETERMINED ABNORMAL ECG WHEN COMPARED WITH ECG OF 14-AUG-2018 08:16, NO SIGNIFICANT CHANGE WAS FOUND Confirmed by JAH CASEY, VITA ([id number]) on 08/16/2018 2:31:58 AM Referred By: JULIANE Confirmed By:VITA TYSON MD
[2018-08-16] MEDS: chlordiazePOXIDE HCL 25 MG CAPSULE PO SCH ×2 (05:39→10:24)
--- NOTE | 2018-08-16 08:08 | PN ---
Physical Exam: SUBJECTIVE: Patient seen and examined at bedside. Feels well. Wants to go home but understands his blood pressure has been difficult to control. 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 OBJECTIVE: Vital Signs Period Temp Pulse Resp BP Sys/Elliott Pulse Ox Last 24 Hr 97.8 F-98.6 F 80-119 16-18 127-159/88-109 96-100 GENERAL: The patient is awake, alert, and fully oriented, in no acute distress. LUNGS: Breath sounds equal, clear to auscultation bilaterally, no wheezes, no crackles, no accessory muscle use. HEART: Regular rate and rhythm, S1, S2 ABDOMEN: Soft, nontender, nondistended, normoactive bowel sounds EXTREMITIES: 2+ pulses, warm, well-perfused, no edema. NEUROLOGICAL: Cranial nerves II through XII grossly intact. Normal speech, steady gait observed. No tremors, no asterixis, no tongue fasciculations. SKIN: Warm, dry, normal turgor, no rashes or lesions noted Laboratory Results - last 24 hr 08/15/18 08/15/18 08/15/18 07:15 07:15 12:35 WBC 9.5 RBC 5.22 Hgb 16.9 Hct 49.7 H MCV 95.2 MCH 32.5 MCHC 34.1 RDW 11.9 Plt Count 258 D MPV 9.1 Absolute Neuts (auto) 5.7 Neutrophils % 60.3 Lymphocytes % 19.1 D Monocytes % 6.5 Eosinophils % 13.3 H D Basophils % 0.8 Sodium 137 Potassium 3.7 Chloride 103 Carbon Dioxide 25 Anion Gap 9 BUN 7 Creatinine 0.9 Creat Clearance w eGFR > 60 Random Glucose 126 H Calcium 8.5 Magnesium 1.7 L Total Bilirubin 2.7 H Direct Bilirubin 0.4 H AST 22 ALT 18 Alkaline Phosphatase 79 D Total Protein 5.6 L Albumin 2.9 L Active Medications Generic Name Dose Route Start Last Admin Trade Name Freq PRN Reason Stop Dose Admin Chlordiazepoxide HCl 25 mg 08/15/18 17:00 08/16/18 05:39 Librium - PO 08/16/18 11:01 25 mg [id number] TREVOR Administration Chlordiazepoxide HCl 15 mg 08/16/18 17:00 Librium - PO 08/17/18 11:01 [id number] TREVOR Chlordiazepoxide HCl 25 mg 08/14/18 13:24 Librium - PO 08/17/18 13:23 Q4H PRN WITHDRAWAL(CONT SUBST) Chlordiazepoxide HCl 10 mg 08/17/18 17:00 Librium - PO 08/18/18 11:01 [id number] TREVOR Folic Acid 1 mg 08/15/18 10:00 08/15/18 09:59 Folic Acid - PO 1 mg DAILY TREVOR Administration Hydralazine HCl 20 mg 08/15/18 14:00 08/15/18 22:19 Apresoline - PO 20 mg QID TREVOR Administration Metoprolol Tartrate 25 mg 08/14/18 22:00 08/15/18 22:19 Lopressor - PO 25 mg BID TREVOR Administration Pantoprazole Sodium 40 mg 08/16/18 10:00 Protonix - PO DAILY TREVOR Thiamine HCl 100 mg 08/15/18 10:00 08/15/18 09:59 Vitamin B1 - PO 100 mg DAILY TREVOR Administration ASSESSMENT/PLAN 43 year-old male with a PMH significant for HTN admitted for hypertensive urgency likely secondary to acute alcohol withdrawal. Acute alcohol withdrawal Lactic acidosis, resolved --tolerating librium taper well --ativan PRN for seizure Elevated bilirubin --total bili trending down --US: diffuse fatty liver --continue to trend LFTs Elevated hemoglobin, resolved --likely secondary to low volume state Hypertension Tachycardia --tachycardia improved with metoprolol, convert to Toprol XL 25mg BID --hypertension persists with increased hydralazine --TSH wnl --cardiology consult FEN Fluids: PO intake adequate Electrolytes: replete as indicated Nutrition: low sodium DVT prophylaxis: SCDs Dispo: continues to require inpatient care. Full code. Visit type - Emergency Visit Emergency Visit: Yes ED Registration Date: 08/14/18 Care time: The patient presented to the Emergency Department on the above date and was hospitalized for further evaluation of their emergent condition. - New Patient This patient is new to me today: No - Critical Care Critical Care patient: No
[2018-08-16 08:53] LABS: BASO % 0.4 % (0-2.0); EOS % 14.4 % (0-4.5); HEMATOCRIT 46.7 % (35.4-49); HEMOGLOBIN 16.3 GM/dl (11.7-16.9); LYMPH % 22.3 % (8-40); MCH 33.4 pg (25.7-33.7); MCHC 34.9 g/dl (32.0-35.9); MEAN CELL VOLUME 95.6 fl (80-96); MEAN PLT VOLUME 9.4 fl (7.5-11.1); MONO % 6.8 % (3.8-10.2); NEUT % 56.1 % (42.8-82.8); PLATELET COUNT 241 K/MM3 (134-434); RBC 4.88 M/mm3 (4.00-5.60); RDW 11.6 % (11.9-15.9); WHITE BLOOD COUNT 7.6 K/mm3 (4.0-10.8)
[2018-08-16 09:04] LABS: ALK PHOS 70 U/L (45-117); ANION GAP 11 MMOL/L (8-16); BILIRUBIN,TOTAL 1.5 mg/dl (0.2-1); BLOOD UREA NITROGEN 9 mg/dl (7-18); CALCIUM 8.2 mg/dl (8.5-10); CHLORIDE 102 mmol/L (98-107); CO2 23 mmol/L (21-32); CREATININE 0.8 mg/dl (0.55-1.3); GLUCOSE,RANDOM 124 mg/dl (74-106); MAGNESIUM 1.9 mg/dL (1.8-2.4); POTASSIUM 3.6 mmol/L (3.5-5.1); SGOT/AST 20 U/L (15-37); SGPT/ALT 17 U/L (13-61); SODIUM 136 mmol/L (136-145); TOT PROT 5.6 g/dl (6.4-8.2)
[2018-08-16] MEDS ORDERED: metoPROLOL SUCCINATE 25 MG TAB.SR.24H (FP) PO SCH (10:00)
[2018-08-16] MEDS ORDERED: PANTOPRAZOLE 40 MG TABLET (FP) PO SCH (10:00)
[2018-08-16] MEDS: FOLIC ACID 1 MG TABLET (FP) PO SCH (10:23)
[2018-08-16] MEDS: THIAMINE HCL 100 MG TABLET (FP) PO SCH (10:24)
[2018-08-16] MEDS ORDERED: hydrALAZINE HCL 10 MG TABLET PO SCH ×2 (14:00)
[2018-08-16 14:08] VITALS: TEMP 97.8
--- NOTE | 2018-08-16 14:43 | CON.CARD ---
Consult Consult Specialty:: Cardiology Referred by:: Medicine Reason for Consultation:: hypertension - History of Present Illness Chief Complaint: high bp History of Present Illness: 43M h/o HTN, EtOH abuse p/w nausea, abd pain, diarrhea and high blood pressure in setting of EtOH withdrawal. At home is on norvasc Also felt palps. No chest pain, dyspnea, dizziness. Initial lactate 2.6, improved, received IVF, librium protocol. BP improving on hydralazine and metoprolol, norvasc was dc' ed. Has history of high blood pressure, was diagnosed at age 15 and has been on amlodipine for the last two years, not always compliant with meds. Hx of EtOH use. Also notes baseline HR 100s in the past, drinks coffee, red bull as well. - Alcohol/Substance Use Hx Alcohol Use: Yes (4 TIMES A WEEK) - Smoking History Smoking history: Never smoked Have you smoked in the past 12 months: No Home Medications - Allergies Allergies/Adverse Reactions: Allergies Allergy/AdvReac Type Severity Reaction Status Date / Time Penicillins Allergy Verified 08/14/18 08:10 - Home Medications Home Medications: Ambulatory Orders Amlodipine Besylate [Norvasc -] 10 mg PO DAILY #1 tablet 05/02/17 Family Disease History - Family Disease History Family Disease History: Heart Disease: Father (afib, HTN) Review of Systems - Review of Systems Constitutional: reports: No Symptoms Eyes: reports: No Symptoms HENT: reports: No Symptoms Neck: reports: No Symptoms Cardiovascular: reports: No Symptoms Respiratory: reports: No Symptoms Gastrointestinal: reports: No Symptoms Genitourinary: reports: No Symptoms Musculoskeletal: reports: No Symptoms Integumentary: reports: No Symptoms Neurological: reports: No Symptoms Endocrine: reports: No Symptoms Hematology/Lymphatic: reports: No Symptoms Psychiatric: reports: No Symptoms Vital Signs: Vital Signs Temperature 97.8 F 08/16/18 14:00 Pulse Rate 102 H 08/16/18 14:00 Respiratory Rate 18 08/16/18 14:00 Blood Pressure 155/99 08/16/18 14:00 O2 Sat by Pulse Oximetry (%) 98 08/16/18 14:00 Constitutional: Yes: No Distress, Calm Eyes: Yes: Conjunctiva Clear, EOM Intact HENT: Yes: Atraumatic, Normocephalic Neck: Yes: Supple, Trachea Midline Respiratory: Yes: Regular, CTA Bilaterally Gastrointestinal: Yes: Normal Bowel Sounds, Soft Cardiovascular: Yes: Regular Rate and Rhythm JVD: No Carotid Bruit: No PMI: Non-Displaced Heart Sounds: Yes: S1, S2 Murmur: No: Systolic Murmur Musculoskeletal: No: Back Pain Extremities: No: Cold Edema: No Peripheral Pulses WNL: Yes Peripheral Pulses: 2+ Left Doralis Pedis, 2+ Right Dorsalis Pedis Integumentary: No: Jaundice Neurological: Yes: Alert, Oriented Psychiatric: No: Agitated - Other Data Labs, Other Data: CBC, BMP 08/16/18 07:05 08/16/18 07:05 Assessment/Plan EKG: sinus, nl intervals, no ischemic changes CXR: no acute process tele: sinus tachy 100s, occ 120s-130s HTN - has hx of HTN, BP likely higher in setting of EtOH withdrawal - restart amlodipine 10 mg daily - continue metoprolol - start lisinopril 5 mg daily - advised close outpatient follow up for med titration - advised to stop alcohol use tachycardia - likely in setting of EtOH withdrawal, notes he has been told he has tachycardia at baseline - continue metoprolol EtOH withdrawal - on librium protocol per primary - encouraged alcohol cessation
--- NOTE | 2018-08-16 15:27 | DS ---
Physical Exam: SUBJECTIVE: Patient seen and examined. Patient seen and examined at bedside. Feels well. Wants to go home but understands his blood pressure has been difficult to control. OBJECTIVE: Vital Signs Period Temp Pulse Resp BP Sys/Elliott Pulse Ox Last 24 Hr 97.8 F-98.6 F 81-119 16-18 127-155/88-109 95-100 PHYSICAL EXAM GENERAL: The patient is awake, alert, and fully oriented, in no acute distress. LUNGS: Breath sounds equal, clear to auscultation bilaterally, no wheezes, no crackles, no accessory muscle use. HEART: Regular rate and rhythm, S1, S2 ABDOMEN: Soft, nontender, nondistended, normoactive bowel sounds EXTREMITIES: 2+ pulses, warm, well-perfused, no edema. NEUROLOGICAL: Cranial nerves II through XII grossly intact. Normal speech, steady gait observed. No tremors, no asterixis, no tongue fasciculations. SKIN: Warm, dry, normal turgor, no rashes or lesions noted LABS Laboratory Results - last 24 hr 08/16/18 08/16/18 07:05 07:05 WBC 7.6 RBC 4.88 Hgb 16.3 Hct 46.7 MCV 95.6 MCH 33.4 MCHC 34.9 RDW 11.6 L Plt Count 241 MPV 9.4 Absolute Neuts (auto) 4.3 Neutrophils % 56.1 Lymphocytes % 22.3 Monocytes % 6.8 Eosinophils % 14.4 H Basophils % 0.4 Sodium 136 Potassium 3.6 Chloride 102 Carbon Dioxide 23 Anion Gap 11 BUN 9 Creatinine 0.8 Creat Clearance w eGFR > 60 Random Glucose 124 H Calcium 8.2 L Magnesium 1.9 Total Bilirubin 1.5 H AST 20 ALT 17 Alkaline Phosphatase 70 Total Protein 5.6 L Albumin 3.0 L HOSPITAL COURSE: Date of Admission:08/14/18 Date of Discharge: 08/16/18 Pre hospital course 43 year-old male witha PMH significant for HTN, presents with abdominal cramping /vomiting/diarrhea for 1 day. Patient was in his usual state of normal health, which includes alcohol intake of 4-5 drinks per day, 4-5 days per week. He did have alcohol binge over the weekend celebrating his birthday, drinking "a lot" Monday, Monday, and Monday. His last drink was on Monday night, 08/12. Last meal at the same time. Patient awoke yesterday with mild abdominal discomfort and had an episode of nonbloody vomiting. Decreased appetite without food but adequately hydrating with water, presents today for evaluation of persistent mild cramping in the epigastric and left-sided abdominal region and feeling palpitations. Compliant with his Norvasc including this morning, denies any headache/vision change/speech change/chest pain/shortness of breath/dyspnea on exertion/edema/focal weakness. Admits to this provider he went through alcohol withdrawal about six months ago when he got the shakes. He was not in a hospital or rehab setting. No history of gallstones or pancreatitis or gastritis , never needed PPI or endoscopy. ER course (1) 166/119, p 121 (2) Total bili 1.7 (3) Lactic acid 2.6 (4) Librium 50mg x 1; ativan IVP total 6mg; clonidine 0.1mg x 1; pepcid IVPB 20mg x 1; NS x 2L Subsequent hospital course by problem list 43 year-old male with a PMH significant for HTN admitted for hypertensive urgency likely secondary to acute alcohol withdrawal. Acute alcohol withdrawal Lactic acidosis, resolved --tolerated librium taper well, will finish in next 48 hours as outpatient --lactic acidosis resolved with IV fluids Elevated bilirubin --total bili initially elevated, trended down --US showed diffuse fatty liver Elevated hemoglobin, resolved --likely secondary to low volume state Hypertension Tachycardia --tachycardia improved with metoprolol --hypertension treated with hydralazine but diastolic remained >100; seen by cardiology, will discharge on three-drug regimen: lisinopril 5mg, Toprol XL 25mg BID, amlodipine 10mg --TSH was wnl --close follow up with Dr. Koroma, PCP Minutes to complete discharge: 35 Discharge Summary Reason For Visit: PALPITATIONS, ALCOHOL WITHDRAWAL SYNDROME Current Active Problems Abdominal cramping (Acute) Alcohol withdrawal (Acute) Palpitations (Acute) Condition: Stable - Instructions Diet, Activity, Other Instructions: You are being given six prescriptions. Three are for blood pressure, one is for librium, and two are for vitamins. Take these medications as directed. You have an appointment with Dr. Maury Ovalle, an internal medicine physician , on August 29 at 9:00am. It is very important you see Dr. Ovalle, or some other provider of your choosing, to have your blood pressure checked and your medications reviewed. The office contact information is enclosed. You indicated you would like to follow up with cardioloigst Dr. Lisa Tipton. Her contact information is enclosed. Return to the emergency department for any new or worsening symptoms. Referrals: Maury Ovalle MD [Staff Physician] - 08/29/18 9:00 am Disposition: HOME - Home Medications Comprehensive Discharge Medication List: Ambulatory Orders Amlodipine Besylate [Norvasc -] 10 mg PO DAILY #1 tablet 05/02/17 This patient is new to me today: No Emergency Visit: Yes ED Registration Date: 08/14/18 Care time: The patient presented to the Emergency Department on the above date and was hospitalized for further evaluation of their emergent condition. Critical Care patient: No - Discharge Referral Referred to [facility] No
[2018-08-16 16:24] VITALS: BP 145/106; PULSE 94
[2018-08-16] MEDS ORDERED: chlordiazePOXIDE 5 MG CAPSULE PO SCH (17:00)
[2018-08-17] MEDS ORDERED: chlordiazePOXIDE 5 MG CAPSULE PO SCH (17:00)
== END 2018-08-16 16:33 | disposition home or self-care (01) | DRG 897 ==
LOC: FER 08:09 → FM/S 11:36
PROVIDERS: ADMIT Internal Medicine; ATTEND Nurse Practitioner Acute Care
DX: F10.230 Alcohol dependence with withdrawal, uncomplicated (principal); E87.2 Acidosis; I10 Essential (primary) hypertension; F41.9 Anxiety disorder, unspecified; I16.0 Hypertensive urgency; R00.2 Palpitations; R00.0 Tachycardia, unspecified
CPT/HCPCS: 36415; 71045-TC-FY; 76705-TC; 80048; 80053; 80307; 81003; 82248; 82550; 82553; 83605; 83690; 83735; 84443; 84484; 85025; 93005; 99285-25; J0735; J7030

== ENCOUNTER 2019-05-27 07:08 | Emergency (ER) | payer OTHER ==
--- NOTE | 2019-05-27 07:16 | PDOC ---
History of Present Illness - General Chief Complaint: Pain Stated Complaint: FELT SOMETHING POP IN UPPER ABDOMEN Time Seen by Provider: 05/27/19 07:16 History Source: Patient Exam Limitations: No Limitations - History of Present Illness Initial Comments: 05/27/19 07:38 Pt presents to the ED complaining of the sudden onset of epigastric pain. States that he felt something "pop" in his abdomen and that he then experienced sharp pain and a feeling of "bulging" in his epigastrium that persistent for "seconds". Denies nausea, vomiting, fever, bloody vomit or stool. History of heavy ETOH use--drinks 4-5 drinks/day. Last drink was last night. Patient is currently complaining of only minimal pain. Denies chest pain or shortness of breath. Patient was extremely hypertensive in triage. Admits to missing two of his antihypertensives this morning. Past History - Past Medical History Allergies/Adverse Reactions: Allergies Allergy/AdvReac Type Severity Reaction Status Date / Time Penicillins Allergy Verified 05/27/19 07:10 Home Medications: Ambulatory Orders Amlodipine Besylate [Norvasc -] 10 mg PO DAILY #30 tablet 08/16/18 Lisinopril 5 mg PO DAILY #30 tablet 08/16/18 Metoprolol Succinate [Toprol XL -] 25 mg PO BID #60 tab.sr.24h 08/16/18 COPD: No HTN: Yes - Psycho Social/Smoking Cessation Hx Smoking History: Never smoked Have you smoked in the past 12 months: No Hx Alcohol Use: Yes (4 TIMES A WEEK) Drug/Substance Use Hx: Yes ([employer]IJUA[employer]) Substance Use Type: Alcohol Hx Substance Use Treatment: No Review of Systems - Review of Systems Able to Perform ROS?: Yes Is the patient limited [place] proficient: No Constitutional: No: Symptoms Reported, See HPI, Chills, Diaphoresis, Fever, Loss of Appetite, Malaise, Night Sweats, Weakness, Weight Stable, Unintentional Wgt. Loss, Unexplained wgt Loss, Other HEENTM: No: Symptoms Reported, See HPI, Eye Pain, Blurred Vision, Tearing, Recent change in vision, Double Vision, Cataracts, Ear Pain, Ocular Prothesis, Ear Discharge, Nose Pain, Nose Congestion, Tinnitus, Nose Bleeding, Hearing Loss , Throat Pain, Throat Swelling, Mouth Pain, Dental Problems, Difficulty Swallowing, Mouth Swelling, Other Respiratory: No: Symptoms reported, See HPI, Cough, Orthopnea, Shortness of Breath, SOB with Exertion, SOB at Rest, Stridor, Wheezing, Productive cough, Hemoptysis, Other Cardiac (ROS): No: Symptoms Reported, See HPI, Chest Pain, Edema, Irregular Heart Rate, Lightheadedness, Palpitations, Syncope, Chest Tightness, Other ABD/GI: No: Symptoms Reported, See HPI, Abdominal Distended, Abd. Pain w/ defecation, Blood Streaked Bowels, Constipated, Diarrhea, Difficulty Swallowing , Nausea, Poor Appetite, Poor Fluid Intake, Rectal Bleeding, Vomiting, Indigestion, Abdominal cramping, Tarry Stools, Other : No: Symptoms Reported, See HPI, Burning, Dysuria, Discharge, Frequency, Flank Pain, Hematuria, Incontinence, Pain, Urgency, Testicular Mass, Testicular Swelling, Lesions, Testicular Pain, Other All Other Systems: Reviewed and Negative *Physical Exam - Physical Exam 05/27/19 08:05 gen: alert, NAD HEENT" normocephalic, atraumatic CV: rrr no m/r/g pulm: CTA b/l Abdomen: soft, non distended, + minimal tenderness to deep palpation in the epigastrium Neuro: alert and oriented x 3, CN grossly intact, ambulatory with normal gait. ED Treatment Course - LABORATORY CBC & Chemistry Diagram: 05/27/19 07:45 05/27/19 07:45 Medical Decision Making - Medical Decision Making 05/27/19 08:06 Pt presents to the ED complaining of epigastric pain. Differential includes gastritis, pancreatitis, biliary disease, less likely ACS. Will check labs and EKG, treat with antihypertensives and reassess. Discharge - Discharge Information Problems reviewed: Yes Clinical Impression/Diagnosis: Abdominal cramping Condition: Good Disposition: HOME - Admission No - Follow up/Referral - Patient Discharge Instructions Patient Printed Discharge Instructions: DI for Epigastric Pain Additional Instructions: you came to the ED for pain at the top of your abdomen. We did blood testing for your liver, gallbladder and pancreas, which was all normal. You should return to the ED for worsening pain, pain with fever or severe nausea and vomiting. Make sure that you take your blood pressure medicine every day. - Post Discharge Activity
[2019-05-27 07:20] VITALS: TEMP 98; BMI 28.4
[2019-05-27] MEDS ORDERED: amLODIPine BESYLATE 10 MG TABLET (FP) PO ONE (07:37)
[2019-05-27] MEDS ORDERED: LISINOPRIL 5 MG TABLET (FP) PO ONE (07:37)
[2019-05-27] MEDS ORDERED: amLODIPine BESYLATE 5 MG TABLET (FP) ONE (08:02)
[2019-05-27] MEDS ORDERED: LISINOPRIL 5 MG TABLET (FP) ONE (08:03)
[2019-05-27 08:07] LABS: BASO % 0.3 % (0-2.0); EOS % 3.3 % (0-4.5); HEMATOCRIT 50.4 % (35.4-49); HEMOGLOBIN 17.1 GM/dl (11.7-16.9); LYMPH % 10.1 % (8-40); MCH 32.5 pg (25.7-33.7); MCHC 33.9 g/dl (32.0-35.9); MEAN PLT VOLUME 9.4 fl (7.5-11.1); NEUT % 80.3 % (42.8-82.8); PLATELET COUNT 214 K/MM3 (134-434); RBC 5.25 M/mm3 (4.00-5.60); RDW 12.1 % (11.9-15.9); WHITE BLOOD COUNT 9.3 K/mm3 (4.0-10.8)
[2019-05-27 08:16] LABS: ALBUMIN 4.1 g/dl (3.4-5.0); BILIRUBIN,TOTAL 1.3 mg/dl (0.2-1); CALCIUM 8.5 mg/dl (8.5-10); POTASSIUM 3.8 mmol/L (3.5-5.1); TOT PROT 7.4 g/dl (6.4-8.2)
[2019-05-27 09:07] VITALS: BP 155/113; PULSE 78
--- NOTE | 2019-05-28 09:23 | EKG ---
Test Reason : Blood Pressure : / mmHG Vent. Rate : 075 BPM Atrial Rate : 075 BPM P-R Int : 146 ms QRS Dur : 092 ms QT Int : 404 ms P-R-T Axes : 019 -16 001 degrees QTc Int : 451 ms NORMAL SINUS RHYTHM NORMAL ECG WHEN COMPARED WITH ECG OF 15-AUG-2018 13:12, NO SIGNIFICANT CHANGE WAS FOUND Confirmed by MD Medeiros Edward ([id number]) on 05/28/2019 9:23:22 AM Referred By: Confirmed By:Pilo Medeiros MD
== END 2019-05-27 09:22 | disposition home or self-care (01) ==
LOC: FER 07:08
DX: R10.2 Pelvic and perineal pain (principal); I10 Essential (primary) hypertension
CPT/HCPCS: 36415; 80053; 82550; 82553; 83690; 84484; 85025; 93005; 99283-25